=== PATIENT | female | born 1980 | race Hispanic/Latino ===

== ENCOUNTER 2016-11-05 05:46 | Day surgery (SDC) | payer BC ==
[2016-11-05 06:09] VITALS: BMI 45.1
[2016-11-05 06:31] LABS: HEMATOCRIT 36.2 % (34.0-47.0); MEAN CELL VOLUME 82.4 fl (81.0-99.0); MEAN CORPUSCULAR HEMOGLOBIN 26.8 pg (27.0-31.0); MEAN CORPUSCULAR HGB CONC 32.6 g/dL (33.0-37.0); WHITE BLOOD COUNT 14.3 K/uL (4.8-10.8)
[2016-11-05] MEDS ORDERED: Bupivacaine 0.5% Inj(30mL) ONE (07:46)
[2016-11-05] MEDS ORDERED: Propofol 10 mg/ml Inj (20 ML) ONE ×2 (07:53→10:18)
[2016-11-05] MEDS ORDERED: Rocuronium 10 mg/ml (5 ml) ONE (07:54)
[2016-11-05] MEDS ORDERED: ePHEDrine 50 mg/ml Inj ONE ×2 (07:54→09:11)
[2016-11-05] MEDS ORDERED: Midazolam 2 MG/2 ML VIAL ONE (07:54)
[2016-11-05] MEDS ORDERED: Succinylcholine 200 mg/10 ml Inj IV ONE (07:55)
[2016-11-05] MEDS ORDERED: Phenylephrine 10 mg/ml Inj ONE (08:14)
[2016-11-05] MEDS ORDERED: Lactated Ringer's 1,000 ML IV ONE ×2 (08:40→09:30)
[2016-11-05] MEDS ORDERED: Dexamethasone 4 mg/1 ml ONE (09:20)
[2016-11-05] MEDS ORDERED: Bupivacaine 0.5% 50 ML IJ ONE ×3 (09:34)
[2016-11-05] MEDS ORDERED: Neostigmine Methylsulfate 3mg/3ml Syringe IV ONE (10:47)
[2016-11-05] MEDS ORDERED: Lactated Ringer's 1,000 ML IV SCH (11:22)
[2016-11-05] MEDS ORDERED: HYDROmorphone 0.5 mg/0.5 ml ISec IVP PRN (11:22)
[2016-11-05] MEDS ORDERED: Oxycodone/Acetaminophen 5/325 mg Tab PO PRN (11:44)
[2016-11-05 11:47] VITALS: RESP 18
[2016-11-05] MEDS ORDERED: DiphenhydrAMINE 50 mg/ml Inj IVP PRN (12:08)
[2016-11-05 17:50] VITALS: BP 123/80; PULSE 89; TEMP 98; O2SAT 96
--- NOTE | 2016-11-07 08:44 | PCM.OP ---
Operative Report - Operative Report Date of Surgery/Procedure: 11/05/16 Time of Surgery/Procedure: 08:00 Surgeon: Dr. Yves Anguiano Extractor And Wringer Operator: Dr. Ej Tidwell Anesthesia/Sedation: Dr. Arzola/General Pre-Operative Diagnosis: Abdominal pain and endometriosis Post-Operative Diagnosis: same Indication for Surgery: Abdominal pain and endometriosis Operative Findings: Extensive adehesions involving the pelvis and urinary bladder Procedure/Operation Description: 1-Complex cystorrhaphy. Brief Hsitory: This 36 year old woman was brought to the operating room by Dr. Ej Tidwell and after initiating the robotic procedure encountered multiple dense adhesion in the pelvis. Intraoperative consultation was requested from general surgery. Description of the Procedure: The patient had already been explored with the robot when Dr. Tidwell encountered multiple adhesions in the pelvis from previous surgey and presumptive diagnosis of recurrent endometriosis (separate dictation Dr. Tidwell). After taking control of the robotic console multiple adhesions to the large bowel were lysed using blunt dissection and the aid of electrocautery. Once the pelvic floor was cleared the intestines were retracted cephalad and the the pelvic floor was adequately visualized. The operation was then turned over to Dr. Tidwell (separate dictation Dr. Tidwell). Durng the course of the operation the urnairy bladder lesions were removed by Dr. Tidwell ( separate dictation Dr. Tidwell) and the rents in the bladder required repair. Again after taking control of the robotic console the bladder was assessed and with 2-0 V-lock suture ligation the complex rent was closed from medial to lateral. After the initial suture ligation it was felt that the defect required further suture for closure. Using the same 2-0 V-lock the rent closure was completed with reconstruction of the defect from side to side fashion. At this point the cystorraphy was complete and the operation was again turned over to Dr. Tidwell (separate dictation Dr. Tidwell). Estimated Blood Loss: 40 cc Blood Replaced: none Sponge/Instrument Count: correct Complications: none Discharge & Condition: stable
--- NOTE | 2016-11-30 11:55 | OP ---
PROCEDURE DATE: 11/05/2016 PREOPERATIVE DIAGNOSES: Abdominal pain, dyspareunia, dysmenorrhea, pelvic adhesions,bladder pain and rule out endometriosis. POSTOPERATIVE DIAGNOSES: Abdominal pain, dyspareunia, dysmenorrhea, pelvic adhesions, rule out endometriosis, and significant pelvic adhesions in the anterior postoperative from section involving abdominal wall and the bladder. PROCEDURES PERFORMED: Cystoscopy, bilateral ureteral catheterization, injection of dye, hysteroscopy, robotic laparoscopy with ovariolysis, ablation of endometriosis, and excision of anterior abdominal adhesions. SURGEON: Ej Tidwell MD CRUSHER TENDER: Yves Anguiano MD and Karin Rene PA-C Additionally Dr. Anguiano will dictate separate note with regards to additional procedure performed by him. TYPE OF ANESTHESIA: General endotracheal. ESTIMATED BLOOD LOSS: Minimal. COMPLICATIONS: None. INDICATIONS FOR PROCEDURE: This patient is a 36-year-old who presented with a history of dysmenorrhea, dyspareunia, and pelvic pain. She had a known history of endometriosis, as well as prior surgery for section. Upon exam in the office, she had symptoms consistent with possible endometriosis, as well as pelvic adhesions ultrasonographically visible. At this point, she was counseled with regards to all the risks and benefits of procedure. DESCRIPTION OF PROCEDURE: She signed a consent and then she was taken to the OR. Given the patient's body habitus, the patient understood that this surgery had above than average risk potential. After signed consent, anesthesia was induced. The patient was placed in dorsal supine position at which point after padding every areas prone to pressure, she was placed in the dorsal lithotomy position. The patient was prepped and draped and at this point, a cystoscope was placed into the bladder under direct vision. Fofana-cystoscopy was performed and attention was paid to both ureteral orifices, which were in normal anatomical position. The left ureteral orifice was catheterized with Stateless open-ended catheter and after advancing the catheter to distal ureter a solution of ICG was then injected for a total of 4 mL. The ureteral catheter was then removed. Attention was paid to the right ureteral orifice at which point a ureteral catheter was advanced to the level of the distal ureter and additional 4 mL of IC Green was injected in the right ureter. The ureteral catheter was then removed. The bladder was inspected and noted to be free of tumor, bleeding, or stones. The cystoscope was removed and a 16-Stateless Roach catheter was placed. At this point, attention was turned to the vaginal area, where a speculum was placed in the vagina. Inferior lip of the cervix was grasped. The uterus was dilated and a hysteroscope was inserted into the uterine cavity revealing a normal cavity with no evidence of stones and polyps. Both ureteral ostia were seen. At this point, after placing Valtchev manipulator in the uterus attention was turned on to the abdomen. Given the patient's body habitus, an open laparoscopic technique was used. This was quite difficult given the large abdominal girth, but with an aide of General Surgery, the abdomen was entered in a blunt fashion. A trocar was placed under direct visualization; left upper quadrant, left mid quadrant, and right upper quadrant trocars were inserted and the pelvis was visualized. There were significant pelvic adhesions. Dr. Anguiano from General Surgery took down some of the bowel adhesions at which point attention was anteriorly. The uterus was completely adherent to the inferior abdominal wall, therefore, progressive dissection was performed in a [id number] fashion excising these very thick area of adhesion. A muscularis defect in the bladder was identified and repaired by General Surgery, who dictated the procedure separately. The bladder was not entered. At this point, after checking for integrity of the bladder and after repair, attention was then turned to the posterior cul-de-sac, where bipolar coagulation was performed of the cul-de-sac for some smaller endometriotic implants. At this point, the pelvis was irrigated. The [employer] Live robot undocked and all the instruments were removed. The incisions were in closed in layers with 0 PDS for the fascia and 4-0 Monocryl for the skin. At the end of the procedure, all the instrument counts were correct. The patient tolerated the procedure well and was taken to recovery room in excellent condition. Ej Tidwell MD [facility]
== END 2016-11-05 17:50 | disposition home or self-care (01) ==
LOC: H.OPSURG 05:46
PROVIDERS: ATTEND Obstetrics & Gynecology Reproductive Endocrinology
DX: N80.0 Endometriosis of uterus (principal); R06.83 Snoring; E66.01 Morbid (severe) obesity due to excess calories; N73.6 Female pelvic peritoneal adhesions (postinfective); N94.10 Unspecified dyspareunia
CPT/HCPCS: 36415; 52005; 53899; 58563; 58660; 85027; 86850; 86900; C1729; J0330; J0690; J1100; J1170; J1200; J2001; J2250; J2370; J2405; J2704; J2710; J2765; J3010; J7030; J7040; J7120